=== PATIENT | female | born 1985 | race Asian ===

== ENCOUNTER 2022-05-29 12:13 | Emergency (ER) | payer MEDICAID ==
[~2022-05-29] VITALS: Ht 162.6 cm; Wt 72.6 kg
[2022-05-29 12:22] VITALS: BP 155/84
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
[2022-05-29] MEDS ORDERED: AMOX500C2 PO (12:36)
[2022-05-29] MEDS ORDERED: CETI1TAB9 PO (12:36)
== END 2022-05-29 12:44 | disposition home or self-care (01) ==
LOC: ER 12:19
DX: H66.91 Otitis media, unspecified, right ear (principal)